=== PATIENT | female | born 1965 | race Caucasian/White ===

== ENCOUNTER 2021-03-07 13:57 | Outpatient (CLI) | payer BC, SELFPAY ==
--- NOTE | 2021-03-09 16:25 | WPDHOLTEREM ---
Holter/Event Monitor Holter/Event Monitor Date of procedure: 03/07/21 Procedure Type: 24 hour holter monitor Indications: Chest pain Conclusion: 1. 24 hour holter monitor on 03/07/21. 2. Underlying rhythm is sinus rhythm. HR range 47-118 bpm; average HR 74 bpm. 3. There are 8 premature supraventricular complexes and 2 supraventricular couplets. No supraventricular tachycardia. 4. There are 24 premature ventricular complexes. No ventricular tachycardia. 5. No sinoatrial or atrioventricular blocks. No significant pauses greater than 2 seconds. 6. No symptoms available for correlation.
== END 2021-03-07 13:58 | disposition home or self-care (01) ==
PROVIDERS: PCP Family Medicine; Visit Provider Nurse Practitioner Family
DX: R07.89 Other chest pain (principal); I34.1 Nonrheumatic mitral (valve) prolapse
CPT/HCPCS: 93225; 93226

== ENCOUNTER → 2021-04-21 00:51 | Outpatient (CLI) | payer BC, SELFPAY ==
[2021-04-21 19:37] LABS: SARS-CoV-2 RNA PCR Negative
== END ==
PROVIDERS: PCP Family Medicine; Visit Provider Internal Medicine Gastroenterology
DX: Z01.812 Encounter for preprocedural laboratory examination (principal); Z20.822 Contact with and (suspected) exposure to COVID-19
CPT/HCPCS: C9803; U0003; U0005

== ENCOUNTER 2021-04-24 01:40 | Day surgery (SDC) | payer BC, SELFPAY ==
[2021-04-10 13:58] VITALS: BMI 25.8
[2021-04-24 07:28] VITALS: BP 118/79; PULSE 82; RESP 18; TEMP 36.7; O2SAT 98; BMI 25.1
[2021-04-24] MEDS: LACTATED RINGERS 1,000 ML 150 ML IV CONT (07:44)
--- NOTE | 2021-04-24 08:07 | WPDANESEPPF ---
Anes - Initial Pre Proc Eval Procedure: Operation Date: 04/24/21 08:30 Proposed Procedures p Screening Colonoscopy - Abisai Tripathi MD Date/Time: 04/24/21 08:07 Surgeon: Abisai Tripathi MD Pre Op Diagnosis: neoplasm, hx of colon polyps Patient Data Age: 55 Gender: F Height: 5 ft 8 in Weight: 74.9 kg Last Vital Signs Temp 98.0 F 04/24/21 07:28 Pulse 82 04/24/21 07:28 Resp 18 04/24/21 07:28 BP 118/79 04/24/21 07:28 Pulse Ox 98 04/24/21 07:28 Allergies Allergy/AdvReac Type Severity Reaction Status Date / Time No Known Allergies Allergy Verified 04/24/21 07:27 Home Medications Medication Instructions Recorded Confirmed Type letrozole 2.5 mg PO DAILY 09/09/19 04/24/21 History calcium carbonate-vitamin D3 1 tablet PO DAILY 10/22/19 04/24/21 History [Calcium 600 + D(3)] sod picosulf 10 mg-magnes 3.5 160 ml PO BID #160 ml 04/04/21 Rx gram-citric 12 gram/160 mL oral solution biotin 10,000 mcg PO DAILY 04/10/21 04/24/21 History vitamin E (dl, acetate) 90 mg PO DAILY 04/10/21 04/24/21 History Patient hx anesthesia problems: none Family hx anesthesia problems: none PMFSH Past Medical History Medical History (Updated 04/24/21 @ 08:08 by Patrice Arboleda MD) Encounter for wellness examination Family history of colon cancer in father Lymphedema of right upper extremity Mitral valve prolapse, nonrheumatic no symptoms Polyp of colon UTI (urinary tract infection) Yeast vaginitis Family History Family History Sibling Hypertension Patient's brother is , Onset Age: 56 Father Carcinoma of colon Patient's father is , Onset Age: 74 Mother Patient's mother is , Onset Age: 86 Family history of malignant neoplasm of breast in first degree relative Grandparent Family history of cardiovascular disease Cerebrovascular accident, Onset Age: 72 Carcinoma of colon Other Family history of allergic disorder Social History Social History Smoking status: Never smoker Alcohol intake: former Substance use: never Substance use type: does not use Living arrangements: with family Spiritual care concerns: No Anes - Eval Final PreProcedure Day of Procedure 04/24/21 08:07 Patient weight: normal Heart: regular rate and rhythm Lungs: clear to auscultation Airway: Mallampati scale class II Neurological: alert and oriented Last oral intake: >/= 8 hours ASA classification: III Emergent: no Anesthetic plan: proceed Anesthesia type and monitoring: general GIVS and standard monitoring Informed Consent: The patient's anesthetic plan and its attendant risks and benefits were discussed with the patient/family/POA. Questions were solicited and answers provided to the satisfaction of the patient/family/POA.
[2021-04-24] MEDS: ONDANSETRON INJ 4 MG/2 ML VIAL IV PUSH (08:14)
--- NOTE | 2021-04-24 08:23 | WPDGICN ---
Assessment and Plan Assessment and plan (1) History of colon polyps: Code(s): Z86.010 - Personal history of colonic polyps Status: Acute Assessment and Plan: patient has a history of colon polyps for this reason surveillance colonoscopy every 5 years is advised. High-fiber diet suggested. Colonoscopy report follow separately. (2) Family history of colon cancer in father: Code(s): Z80.0 - Family history of malignant neoplasm of digestive organs Status: Acute Assessment and Plan: Patient's father had colon cancer for this reason surveillance colonoscopy is been advised to 5 year intervals. GI Consult Note Consult date/time: 04/24/21 08:23 HPI: Michelle Davis is a 55 year old female Presents for surveillance colonoscopy. A patient states that her own weight appetite bowel movements are normal. She denies abdominal pain. She has had a colon polyp on previous exams. Family history is significant her father had colon cancer. In the last 5 years patient has been treated for breast cancer is felt free from disease for the last last 3 years. Review of Systems Review of Systems: All systems reviewed & are unremarkable except as noted in HPI and below PMFSH Past Medical History Medical History (Updated 04/24/21 @ 08:25 by Abisai Tripathi MD) Encounter for wellness examination Family history of colon cancer in father Lymphedema of right upper extremity Mitral valve prolapse, nonrheumatic no symptoms Polyp of colon UTI (urinary tract infection) Yeast vaginitis Family History Family History Sibling Hypertension Patient's brother is , Onset Age: 56 Father Carcinoma of colon Patient's father is , Onset Age: 74 Mother Patient's mother is , Onset Age: 86 Family history of malignant neoplasm of breast in first degree relative Grandparent Family history of cardiovascular disease Cerebrovascular accident, Onset Age: 72 Carcinoma of colon Other Family history of allergic disorder Social History Social History Smoking status: Never smoker Alcohol intake: former Substance use: never Substance use type: does not use Living arrangements: with family Spiritual care concerns: No Meds Home Medications and Allergies Home Medications Medication Instructions Recorded Confirmed Type letrozole 2.5 mg PO DAILY 09/09/19 04/24/21 History calcium carbonate-vitamin D3 1 tablet PO DAILY 10/22/19 04/24/21 History [Calcium 600 + D(3)] sod picosulf 10 mg-magnes 3.5 160 ml PO BID #160 ml 04/04/21 Rx gram-citric 12 gram/160 mL oral solution biotin 10,000 mcg PO DAILY 04/10/21 04/24/21 History vitamin E (dl, acetate) 90 mg PO DAILY 04/10/21 04/24/21 History Allergies Allergy/AdvReac Type Severity Reaction Status Date / Time No Known Allergies Allergy Verified 04/24/21 07:27 Vital Signs Vital Signs - 24 hr 04/24/21 07:28 Temperature 98.0 F Pulse Rate 82 Respiratory Rate 18 Blood Pressure 118/79 Pulse Oximetry 98 Exam Narrative: Exam Narrative: Physical exam reveals patient be alert. Vital signs stable. HEENT exam is unremarkable. Patient is anicteric. Lungs are clear to auscultation and percussion. Heart is without murmur or extra sounds. Abdominal exam bowel sounds are present soft nontender with no organomegaly. Digital external rectal exam is normal
[2021-04-24 08:47] VITALS: BP 102/68; PULSE 74; RESP 25; O2SAT 97
[2021-04-24 08:57] VITALS: BP 104/64; PULSE 81; RESP 19; O2SAT 100
[2021-04-24 09:07] VITALS: BP 128/78; PULSE 77; RESP 19; O2SAT 100
== END 2021-04-24 09:15 | disposition home or self-care (01) ==
PROVIDERS: PCP Family Medicine; Visit Provider Internal Medicine Gastroenterology
PROC: 0DJD8ZZ Inspection of Lower Intestinal Tract, Via Natural or Artificial Opening Endoscopic (ICD-10-PCS; CPT 45378; principal; 2021-04-24 08:30)
DX: Z12.11 Encounter for screening for malignant neoplasm of colon (principal); Z80.0 Family history of malignant neoplasm of digestive organs; Z86.010 Personal history of colon polyps; K57.30 Diverticulosis of large intestine without perforation or abscess without bleeding; K64.8 Other hemorrhoids; I89.0 Lymphedema, not elsewhere classified; I34.1 Nonrheumatic mitral (valve) prolapse
CPT/HCPCS: 45378; J2405; J2704; J7120

== ENCOUNTER 2022-01-31 08:00 | Outpatient (RCR) | payer BC, SELFPAY ==
--- NOTE | 2021-11-06 09:29 | PTOPEVAL ---
PHYSICAL THERAPY EVALUATION AND PLAN OF CARE 11-06-21 Thank you for referring Michelle Davis to [facility] for the diagnosis of R UE and trunk lymphedema. ?She is scheduled to be seen for therapy? 0-1 x/week for 12 weeks. Please review, sign, date and return this plan of care DENISE. I agree with and certify that the following plan of care is medically necessary. Referring Physician Date Attending Provider: Subha Massey MD *PT Outpatient Evaluation Start: 11/06/21 08:03 Document 11/06/21 08:00 SHAYE (Rec: 11/06/21 08:41 SHAYE [id number]) Past Medical History Neurological History Hx Neurological Disorders No Significant History Cardiovascular History Hx Mitral Valve Prolapse Yes Respiratory History Hx Respiratory Disorders No Significant History Gastrointestinal History Hx Gastrointestinal Disorders No Significant History Genitourinary History Hx Urinary Tract Infection Yes: from letrozole Musculoskeletal History Hx Scoliosis Yes Hematological History Hx Blood Transfusions Yes Endocrine History Hx Endocrine Disorders No Significant History HEENT History Hx HEENT Disorders No Significant History Integumentary History Hx Skin Disorders No Significant History Reproductive History Hx Section Yes: x1 Hx Post Menopausal Yes Psychosocial History Hx Psychiatric Disorders No Significant History Pain History History of Any Previous or Ongoing No Significant History Instance of Pain Anesthesia History Hx Post-Op Nausea/Vomiting Yes Other History Hx Cancer Yes: breast cancer in 2018 Hx Chemotherapy Yes: 2018 Hx Radiation Therapy Yes: 2018 Evaluation Information Problem Diagnosis R UE lymphedema Onset 10-17-21 Subjective Information Michelle reports at her last dr Query Text:As Reported By Patient/ appt, it was discussed that Family she might be a candidate for lymph node transplant. She wants to pursue and see if she is a candidate for the surgery . To do this, it is required that she wears a compression sleeve, uses a night garment and has monthly measurements of her arm by therapy. Prior Level of Function Activity Level (Last 3 Months) Hand Dominance Right Activity of Daily Living Ability Independent Indoor/Home Mobility Independent Community Mobility Independent Stairs Ability Independent Functional Cognition (Planning,
--- NOTE | 2021-11-06 13:13 | PCPTNOTE ---
I called Dr office and spoke with the nurse; discussed with her any other expectations from pre op PT services other than: night garment, day garment, education and measure arm 1x/month for 3 months. She stated that was all that was expected from PT.
--- NOTE | 2021-11-27 15:06 | PCPTNOTE ---
talked with pt on the phone, [employer] requires the PT to submit info for her to return her compression sleeve. I called and was not able to get through to customer service experiencing longer than normal wait times...can fax or email any concerns for quicker response. I faxed info for pt's status with 30-40 sleeve and recommendation for [employer] sleevve, 20-30 mmHg, size 1 standard length sleeve to replace the previous sleeve. I called pt and notified her of above.
--- NOTE | 2021-11-27 15:09 | PCPTNOTE ---
Michelle Davis has worn the [employer] compression arm sleeve with 30-40 mmHg compression for 3 days. It fits her, but she reports it is uncomfortable, and she has increased swelling in her hand. It is recommended that she return this sleeve and obtain a [email or web address] [email or web address] arm sleeve with 23-32 mmHg, size 1, standard length. If there are any further questions or concerns, please contact me at [phone], at fax or email:[email or web address]. thank you, Harini Chase, PT, CLT
--- NOTE | 2021-12-25 08:52 | PTOPEVAL ---
PHYSICAL THERAPY UPDATE REPORT 12-25-21 Michelle has received 5 PT sessions, from Nov 06 to today. Compared to the initial evaluation: she is wearing her 23-32 mmHg compression arm sleeve and compression bra daily; is using her home intermittent compression pump daily; is doing her R UE exercises at home and reports is using her arm more and able to reach higher in cabinets; today's circumferential measurement of her R UE is 8.3 cm less. She continues to have firmness of the R anterior forearm tissue and lymphedema over R upper-lateral trunk. Continue PT per original treatment plan, until January 29, 2022. Thank you for referring Michelle Davsi to [facility].? Please review, sign, date and return this update report DENISE. I agree with and certify that the following plan of care is medically necessary. Referring Physician Date Attending Provider: Subha Massey MD Subjective Information Michelle reports: doing fine home pump every night; feel like arm is a little smaller or about the same size- see it every day and not sure; tissue feels the same; was able to shovel the snow without any problems; doing arm exercises at home; continue to wear compression sleeve and bra; Pain Assessment Timing of Pain Assessment Timing of Pain Assessment Assessment Self Report Self Report Pain Level 0 Pain Score Pain Score 0: Self Report Upper Extremity Range of Motion General Upper Extremity Range of Motion Gross Upper Extremity Range of Motion R shoulder flexion active 135' Comments / passive in supine 145'; active abduction 135'; IR- reach behind back, fingers to lower scapula; ER- reach behind head, to upper cervical ; no pain reported with R shoulder motion. Stated feels she is using her R arm more around the house, and able to reach higher into cabinets Upper Extremity Muscle Strength Testing General Upper Extremity Strength Gross Upper Extremity Strength Comments stands with rounded shoulder posture--due to weakness of scapula/thoracic musculature; reviewed HEP- pt is performing daily, without any problems or questions Lymphedema Evaluation Skin Inspection Location Right Upper Extremity,Right Anterior Lower Quadrant,Right
--- NOTE | 2022-01-31 08:53 | PTOPEVAL ---
PHYSICAL THERAPY DISCHARGE 01-31-22 Refer to the clinical summary below, for her status today, compared to the initial evaluation. She will be discharged from PT at this time; the goals were achieved. Thank you for referring Michelle Davis to [facility].? Please review, sign, date and return this Discharge report DENISE. I agree with and certify that the following plan of care is medically necessary. Referring Physician Date Attending Provider: Subha Massey MD Subjective Information Michelle reports: does not have Query Text:As Reported By Patient/ any concerns about discharge Family today; is going to call dr for a follow up appointment; Timing of Pain Assessment Assessment Self Report Self Report Pain Level 0 Pain Score Pain Score 0: Self Report Gross Upper Extremity Range of Motion supine PROM to R shoulder- Comments reported tight at end ranges of flexion and ER, WNL and pt reports using her R arm without any problems with home tasks. Skin Inspection Location Right Upper Extremity,Right Anterior Upper Quadrant,Right Posterior Upper Quadrant Lymphedema Stage I Skin Inspection Comment visual inspection: minimal edema over R lateral upper trunk, without fibrosis; R UE: skin color normal, no redness; no firmness of tissue over forearm or elbow lymphedema management: discussed with pt: she is doing R UE exercises, using home intermittent compression pump daily, wearing compression sleeve 20-30mmHg daily and compression sports bra for lateral trunk; and doing self MLD; she has not ordered the chip sleeve for night, not sure she could sleep with it on; discussed option of applying the compression wrap at night for increased swelling; her current sleeve was obtained through [employer] and her insurance covered it; discussed replacement of sleeve--to check if insura
== END 2022-01-31 13:45 | disposition home or self-care (01) ==
LOC: ANHPT 08:00
PROVIDERS: PCP Family Medicine
DX: I89.0 Lymphedema, not elsewhere classified (principal)
CPT/HCPCS: 97110; 97140; 97161